=== PATIENT | male | born 1950 | race African-American/Black ===

== ENCOUNTER 2016-09-29 14:54 | Emergency (ER) | payer OTHER ==
[~2016-09-29] VITALS: Ht 185.4 cm; Wt 90.0 kg
[~2016-09-29 14:54] MED LIST: AMOX875 PO; TYLE3 PO; Z.0.NO CURRENT MEDS
[2016-09-29 14:56] VITALS: BP 185/120; PULSE 110; RESP 18; TEMP 98.9; O2SAT 97
--- NOTE | 2016-09-29 15:27 | PD ---
HPI Chief Complaint: Pain: Acute or Chronic Time Seen by Provider: 15:25 Travel History International Travel<30 days: No Contact w/Intl Traveler<30days: No Traveled to known affect area: No History of Present Illness HPI 65-year-old male presents to the emergency department for evaluation of left shoulder pain is been ongoing for 2 days without traumatic injury. Patient does report a history of chronic shoulder pain. He has reports surgery in 1979 for a torn rotator cuff. He denies any fevers or chills. He states the pain is relieved with rest, exacerbated by movement of the left arm. He denies any chest pain or shortness of breath. Patient does report a history of hypertension and he takes clonidine and gabapentin twice daily. He denies any other medical complaints at this time. [facility] Social History Alcohol Use: Yes Tobacco Use: Yes Substance Use: No Allergies-Medications (Allergen,Severity, Reaction): Coded Allergies: No Known Allergies (Verified , 05/28/10) Reported Meds & Prescriptions Reported Meds & Active Scripts Active Diclofenac Potassium 50 Mg Tab 50 Mg PO TID PRN Reported Clonidine (Clonidine HCl) 0.2 Mg Tab 0.2 Mg PO BID Prilosec (Omeprazole) 20 Mg Cap 20 Mg PO DAILY Neurontin (Gabapentin) 100 Mg Cap 100 Mg PO BID Review of Systems Except as stated in HPI: all other systems reviewed are Neg Physical Exam Narrative GENERAL: Well-developed well-nourished male patient, ambulatory. Afebrile. SKIN: Warm and dry. HEAD: Normocephalic. Atraumatic. EYES: No scleral icterus. No injection or drainage. NECK: Supple, trachea midline. No JVD or lymphadenopathy. CARDIOVASCULAR: Regular rhythm without murmurs, gallops, or rubs. Left radial pulse 2+. Patient is slightly tachycardic with heart rate 110 with likely due to pain. RESPIRATORY: Breath sounds equal bilaterally. No accessory muscle use. Lungs sounds are clear to auscultation. GASTROINTESTINAL: Abdomen soft, non-tender, nondistended. MUSCULOSKELETAL: No cyanosis, or edema. Tenderness to left upper/posterior shoulder is easily reproduced with palpation. The patient has limited flexion of the left shoulder due to pain. Patient has a normal grasp strength in the left hand. He has full sensation to distal left upper extremity. Data Data Last Documented VS Vital Signs Date Time Temp Pulse Resp B/P Pulse Ox O2 Delivery O2 Flow Rate FiO2 09/29/16 17:31 104 168/107 09/29/16 17:04 22 09/29/16 14:56 98.9 97 Room Air Orders Shoulder, Complete (>2vws) (09/29/16 ) Ketorolac Inj (Toradol Inj) (09/29/16 15:30) Clonidine (Catapres) (09/29/16 16:15) MDM Medical Decision Making Medical Screen Exam Complete: Yes Emergency Medical Condition: Yes Medical Record Reviewed: Yes Interpretation(s) Last Impressions Shoulder X-Ray 09/29/16 0000 Draft Impressions: Service Date/Time: Thursday, September 29, 2016 15:44 - CONCLUSION: No acute abnormality. Moderate degenerative changes of the left a.c. joint with downsloping osteophytes which likely cause symptoms of impingement. Kalyn Lujan MD Differential Diagnosis Shoulder sprain versus muscle strain versus fracture versus dislocation versus exacerbation of chronic pain Narrative Course 65-year-old male presents to the emergency department for left shoulder pain for 2 days without injury. He denies any other complaints. The pain is easily reproducible with palpation and movement of the left arm. X-ray of the left shoulder is ordered and pending. X-ray of the left shoulder shows no acute abnormality. Moderate degenerative changes of the left a.c. joint with downsloping osteophytes which likely cause symptoms of impingement. Patient will be discharged prescription for diclofenac for pain. He is instructed to follow-up with orthopedist. He'll be given the name and number for orthopedist on-call today. Patient verbalizes agreement and understanding. Diagnosis Primary Impression: Left shoulder pain Qualified Code: M25.512 - Chronic left shoulder pain Referrals: Orthopedist Patient Instructions: General Instructions, Shoulder Pain (ED) Additional Instructions: Take diclofenac as instructed as needed with food for pain. Follow-up with an orthopedist. Ice for 20 minutes 4-5 times daily. Return to the emergency department for any acute worsening of symptoms. Med/Other Pt SpecificInfo: Prescription(s) given Scripts Diclofenac Potassium 50 Mg Tab50 Mg PO TID PRN (PAIN SCALE 1 TO 10) #21 TAB Ref 0 Prov:Francie Starkey 09/29/16 Disposition: 01 DISCHARGE HOME Condition: Stable Francie Starkey Sep 29, 2016 15:27
[2016-09-29] MEDS ORDERED: KETOROLAC TROMETHAMINE 60 MG/2 ML (IM) VIAL IM ONE (15:30)
[2016-09-29 15:57] VITALS: BP 183/114; PULSE 118; RESP 24
[2016-09-29] MEDS ORDERED: NEUR100C PO (16:00)
[2016-09-29] MEDS ORDERED: PRIL20CA9 PO (16:01)
[2016-09-29] MEDS ORDERED: CLON0.2T PO (16:02)
[2016-09-29] MEDS ORDERED: cloNIDine HCL 0.2 MG TAB PO ONE (16:15)
--- NOTE | 2016-09-29 16:15 | RADRPT ---
EXAM DATE/TIME: 09/29/2016 15:44 [facility] COMPARISON: No previous studies available for comparison. INDICATIONS : Patient complains of left shoulder pain. No known injury. MEDICAL HISTORY : None. SURGICAL HISTORY : Rotator cuff repair. ENCOUNTER: Initial ACUITY: 2 days PAIN SCORE: 10/10 LOCATION: Left Shoulder FINDINGS: Multiple view examination of the left shoulder demonstrates no evidence of fracture or dislocation th e humerus appears normally aligned with respect to the adjacent glenoid. There are moderate degenerat jerilyn changes identified within the left a.c. joint with downsloping osteophytes which likely cause sym ptoms of impingement. CONCLUSION: No acute abnormality. Moderate degenerative changes of the left a.c. joint with downs loping osteophytes which likely cause symptoms of impingement. Kalyn Lujan MD on September 29, 2016 at 16:12 Board Certified Radiologist. This report was verified electronically.
[2016-09-29] MEDS ORDERED: DICL50TA PO (16:25)
[2016-09-29 17:04] VITALS: BP 180/111; PULSE 113; RESP 22
[2016-09-29 17:31] VITALS: BP 168/107; PULSE 104
== END 2016-09-29 17:41 | disposition home or self-care (01) ==
LOC: NEPB 14:54
DX: M25.512 Pain in left shoulder (principal); G89.29 Other chronic pain
CPT/HCPCS: 73030; 96372; 99283; J1885

== ENCOUNTER 2017-02-03 19:58 | Emergency (ER) | payer OTHER ==
[~2017-02-03] VITALS: Ht 185.4 cm; Wt 90.0 kg
[~2017-02-03 19:58] MED LIST changes: -AMOX875 PO; +CLON0.2T PO; +DICL50TA PO; +NEUR100C PO; +PRIL20CA9 PO; -TYLE3 PO; -Z.0.NO CURRENT MEDS
[2017-02-03 20:00] VITALS: BP 202/106; PULSE 71; RESP 18; TEMP 97.6; O2SAT 98
[2017-02-03] MEDS ORDERED: SODIUM CHLOR 0.9% 1000 ML INJ 1,000 ML IV SCH (20:33)
--- NOTE | 2017-02-03 20:38 | PD ---
HPI Chief Complaint: Abdominal Pain Time Seen by Provider: 20:32 Travel History International Travel<30 days: No Contact w/Intl Traveler<30days: No Traveled to known affect area: No History of Present Illness HPI 66-year-old male with history of gastroesophageal reflux disorder, presents to the ER today for 2 days history of epigastric abdominal discomfort, nausea, diarrhea, vomiting, and coughing with mucus expression. Pain is currently at an 8 out of 10. He has a granddaughter that had some similar symptoms as well. He denies any fevers, chest pains, shortness of breath, or any other symptoms. Modifying Factors: None Associated Signs & Symptoms: Nausea, abdominal discomfort, vomiting, diarrhea, coughing Risk Factors: Possible sick contact PFSH Past Medical History Diminished Hearing: No Hypertension: Yes Social History Alcohol Use: Yes (OCC) Tobacco Use: Yes ([id number]) Substance Use: No Allergies-Medications (Allergen,Severity, Reaction): Coded Allergies: No Known Allergies (Verified , 02/03/17) Reported Meds & Prescriptions Reported Meds & Active Scripts Active Reported Clonidine (Clonidine HCl) 0.2 Mg Tab 0.2 Mg PO BID Prilosec (Omeprazole) 20 Mg Cap 20 Mg PO DAILY Neurontin (Gabapentin) 100 Mg Cap 600 Mg PO BID Review of Systems Except as stated in HPI: all other systems reviewed are Neg Physical Exam Narrative GENERAL: Well-developed elderly -[place] male patient in moderate distress. Awake and oriented 3. SKIN: Focused skin assessment warm/dry. HEAD: Atraumatic. Normocephalic. EYES: Pupils equal and round. No scleral icterus. No injection or drainage. ENT: No nasal bleeding or discharge. Mucous membranes pink and moist. NECK: Trachea midline. No JVD. CARDIOVASCULAR: Regular rate and rhythm. No murmur appreciated. RESPIRATORY: No accessory muscle use. Clear to auscultation. Breath sounds equal bilaterally. GASTROINTESTINAL: Abdomen soft, mild epigastric and left lower quadrant tenderness without guarding or rebound, nondistended. Hepatic and splenic margins not palpable. MUSCULOSKELETAL: No obvious deformities. No clubbing. No cyanosis. No edema. NEUROLOGICAL: Awake and alert. No obvious cranial nerve deficits. Motor grossly within normal limits. Normal speech. PSYCHIATRIC: Appropriate mood and affect; insight and judgment normal. Data Data Last Documented VS Vital Signs Date Time Temp Pulse Resp B/P Pulse Ox O2 Delivery O2 Flow Rate FiO2 02/03/17 23:12 84 16 188/105 99 02/03/17 21:59 Room Air 02/03/17 20:00 97.6 Orders Complete Blood Count With Diff (02/03/17 20:33) Comprehensive Metabolic Panel (02/03/17 20:33) Lipase (02/03/17 20:33) Urinalysis - C+S If Indicated (02/03/17 20:33) Abdomen, Flat & Upright (02/03/17 ) Iv Access Insert/Monitor (02/03/17 20:33) Ecg Monitoring (02/03/17 20:33) Oximetry (02/03/17 20:33) Ondansetron Inj (Zofran Inj) (02/03/17 20:45) Pantoprazole Inj (Protonix Inj) (02/03/17 20:45) Sodium Chlor 0.9% 1000 Ml Inj (Ns 1000 M (02/03/17 20:33) Sodium Chloride 0.9% Flush (Ns Flush) (02/03/17 20:45) Electrocardiogram (02/03/17 20:33) Chest, Single Ap (02/03/17 20:33) Ct Abd/Pel W Iv Contrast(Rout) (02/03/17 22:04) Iohexol 350 Inj (Omnipaque 350 Inj) (02/03/17 23:25) Labs Laboratory Tests Test 02/03/17 02/03/17 20:43 21:47 White Blood Count 3.6 TH/MM3 Red Blood Count 5.58 MIL/MM3 Hemoglobin 13.9 GM/DL Hematocrit 43.1 % Mean Corpuscular Volume 77.2 FL Mean Corpuscular Hemoglobin 24.9 PG Mean Corpuscular Hemoglobin 32.2 % Concent Red Cell Distribution Width 15.3 % Platelet Count 186 TH/MM3 Mean Platelet Volume 8.0 FL Neutrophils (%) (Auto) 35.1 % Lymphocytes (%) (Auto) 44.0 % Monocytes (%) (Auto) 16.7 % Eosinophils (%) (Auto) 3.1 % Basophils (%) (Auto) 1.1 % Neutrophils # (Auto) 1.3 TH/MM3 Lymphocytes # (Auto) 1.6 TH/MM3 Monocytes # (Auto) 0.6 TH/MM3 Eosinophils # (Auto) 0.1 TH/MM3 Basophils # (Auto) 0.0 TH/MM3 CBC Comment DIFF FINAL Differential Comment Sodium Level 140 MEQ/L Potassium Level 4.0 MEQ/L Chloride Level 104 MEQ/L Carbon Dioxide Level 25.8 MEQ/L Anion Gap 10 MEQ/L Blood Urea Nitrogen 9 MG/DL Creatinine 1.16 MG/DL Estimat Glomerular Filtration 77 ML/MIN Rate Random Glucose 87 MG/DL Calcium Level 9.3 MG/DL Total Bilirubin 0.6 MG/DL Aspartate Amino Transf 20 U/L (AST/SGOT) Alanine Aminotransferase 18 U/L (ALT/SGPT) Alkaline Phosphatase 79 U/L Total Protein 8.3 GM/DL Albumin 3.7 GM/DL Lipase 400 U/L Urine Color YELLOW Urine Turbidity CLEAR Urine pH 7.0 Urine Specific Marine 1.012 Urine Protein NEG mg/dL Urine Glucose (UA) NEG mg/dL Urine Ketones NEG mg/dL Urine Occult Blood NEG Urine Nitrite NEG Urine Bilirubin NEG Urine Urobilinogen LESS THAN 2.0 MG/DL Urine Leukocyte Esterase NEG Urine RBC LESS THAN 1 /hpf Urine WBC 1 /hpf Urine Mucus FEW /lpf Microscopic Urinalysis Comment CULT NOT INDICATED MDM Medical Decision Making Medical Screen Exam Complete: Yes Emergency Medical Condition: Yes Medical Record Reviewed: Yes Interpretation(s) EKG shows NSR, no ST elevation or depression, and no arrhythmias. No significant T-wave inversions. Laboratory Tests Test 02/03/17 02/03/17 20:43 21:47 White Blood Count 3.6 TH/MM3 (4.0-11.0) Mean Corpuscular Volume 77.2 FL (80.0-100.0) Mean Corpuscular Hemoglobin 24.9 PG (27.0-34.0) Monocytes (%) (Auto) 16.7 % (0.0-8.0) Neutrophils # (Auto) 1.3 TH/MM3 (1.8-7.7) Estimat Glomerular Filtration 77 ML/MIN (>89) Rate Total Protein 8.3 GM/DL (6.4-8.2) Lipase 400 U/L (73-393) Urine Mucus FEW /lpf (OCC) Last 24 hours Impressions Chest X-Ray 02/03/172032 Signed Impressions: Service Date/Time: Friday, February 03, 2017 21:11 - CONCLUSION: No acute disease. Rohit Burns MD Abdomen X-Ray 02/03/17 0000 Signed Impressions: Service Date/Time: Friday, February 03, 2017 21:13 - CONCLUSION: No acute disease. Rohit Burns MD Differential Diagnosis Abdominal pain, nausea, vomiting, diarrhea, coughingviral syndrome versus gastritis versus pancreatitis versus metabolic issues versus dehydration versus obstruction versus pneumonia Narrative Course Lab work shows mild lipase elevations concerning for underlying pancreatitis. CAT scans and x-rays did not show any signs of other acute processes. At this point, patient had been given IV fluids, nausea medication, and Protonix. He had no further vomiting episodes in the ER. My plan would be to release the patient with worsening in symptoms as necessary. The plan has been discussed with the patient and he states understanding. Diagnosis Primary Impression: Pancreatitis Med/Other Pt SpecificInfo: Prescription(s) given Scripts Hydrocodone-Acetaminophen (Lortab)5-325 Mg Tab1 Tab PO Q6H PRN (PAIN) #15 TAB Ref 0 Prov:Marcie Gilmore MD 02/04/17 Ondansetron Odt (Zofran Odt)4 Mg Tab4 Mg SL Q6HR PRN (Nausea/Vomiting) #7 TAB Ref 0 Prov:Marcie Gilmore MD 02/04/17 Disposition: 01 DISCHARGE HOME Condition: Stable Marcie Gilmore MD February 03, 2017 20:38
[2017-02-03] MEDS ORDERED: ONDANSETRON HCL 4 MG/2 ML VIAL IVP ONE (20:45)
[2017-02-03] MEDS ORDERED: PANTOPRAZOLE SODIUM 40 MG VIAL IVP ONE (20:45)
[2017-02-03] MEDS ORDERED: SODIUM CHLORIDE 0.9% FLUSH 10 ML FLUSH IV FLUSH PRN (20:45)
[2017-02-03 21:02] LABS: AUTOMATED NEUTROPHIL # 1.3 TH/MM3 (1.8-7.7); BASOPHIL % 1.1 % (0.0-2.0); EOSINOPHIL # 0.1 TH/MM3 (0-0.4); EOSINOPHIL % 3.1 % (0.0-4.0); HEMATOCRIT 43.1 % (39.0-51.0); HEMO FLAGS DIFF FINAL; LYMPHOCYTE # 1.6 TH/MM3 (1.0-4.8); MEAN CELL VOLUME 77.2 FL (80.0-100.0); MEAN CORPUSCULAR HEMOGLOBIN 24.9 PG (27.0-34.0); MEAN CORPUSCULAR HGB CONC 32.2 % (32.0-36.0); MONO % 16.7 % (0.0-8.0); NEUT % 35.1 % (16.0-70.0); PLATELET COUNT 186 TH/MM3 (150-450); RED BLOOD COUNT 5.58 MIL/MM3 (4.50-5.90); RED CELL DISTRIBUTION WIDTH 15.3 % (11.6-17.2); WHITE BLOOD COUNT 3.6 TH/MM3 (4.0-11.0)
[2017-02-03 21:24] LABS: ANION GAP 10 MEQ/L (5-15); AST (GOT) 20 U/L (15-37); BICARBONATE 25.8 MEQ/L (21.0-32.0); BLOOD UREA NITROGEN 9 MG/DL (7-18); CHLORIDE 104 MEQ/L (98-107); GLOMERULAR FILTRATION RATE 77 ML/MIN (>89); SODIUM (NA) 140 MEQ/L (136-145)
[2017-02-03 21:27] LABS: ALKALINE PHOSPHATASE 79 U/L (45-117); ALT (GPT) 18 U/L (12-78); TOTAL BILIRUBIN ADULT 0.6 MG/DL (0.2-1.0)
--- NOTE | 2017-02-03 21:53 | RADRPT ---
EXAM DATE/TIME: 02/03/2017 21:11 [facility] COMPARISON: No previous studies available for comparison. INDICATIONS : Chest pain. MEDICAL HISTORY : None. SURGICAL HISTORY : None. ENCOUNTER: Initial ACUITY: 1 day PAIN SCORE: 4/10 LOCATION: chest FINDINGS: A single view of the chest demonstrates the lungs to be symmetrically aerated without evidence of mas s, infiltrate or effusion. The cardiomediastinal contours are unremarkable. Osseous structures are intact. There are surgical fasteners seen at the left proximal humerus. CONCLUSION: No acute disease. Rohit Burns MD on February 03, 2017 at 21:50 Board Certified Radiologist. This report was verified electronically.
--- NOTE | 2017-02-03 21:54 | RADRPT ---
EXAM DATE/TIME: 02/03/2017 21:13 [facility] COMPARISON: No previous studies available for comparison. INDICATIONS : Abdominal pain. MEDICAL HISTORY : None. SURGICAL HISTORY : Pelvis ORIF. ENCOUNTER: Initial ACUITY: 1 day PAIN SCORE: 9/10 LOCATION: Abdomen FINDINGS: Supine and upright views of the abdomen were performed. The abdominal bowel gas pattern is normal. No air fluid levels are seen. No abnormal masses, calcifications, or organomegaly is seen. The visu alized lower lungs are clear. No evidence of free intraperitoneal gas. There is a surgical screw thr ough the right upper pelvis and sacroiliac joint region. There is a plate along the superior aspect o f the pubic bones. There is degenerative change in the upper lumbar spine. CONCLUSION: No acute disease. Rohit Burns MD on February 03, 2017 at 21:51 Board Certified Radiologist. This report was verified electronically.
[2017-02-03 21:59] VITALS: RESP 18; O2SAT 97
[2017-02-03 22:26] LABS: BLOOD, URINE NEG (NEG); GLUCOSE,URINE NEG (NEG); KETONE, URINE NEG (NEG); MUCUS URINE FEW /lpf (OCC); NITRITE,URINE NEG (NEG); URINE COLOR YELLOW (YELLW/STRAW)
[2017-02-03 22:27] LABS: COMMENT (UR) CULT NOT INDICATED; CULTURE IF INDICATED CULT NOT INDICATED
[2017-02-03 23:12] VITALS: BP 188/105; PULSE 84; RESP 16; O2SAT 99
[2017-02-03] MEDS ORDERED: IOHEXOL 350 MG/ML 10 ML VIAL (for RAD DIAG) IV ONE (23:25)
--- NOTE | 2017-02-03 23:52 | RADRPT ---
EXAM DATE/TIME: 02/03/2017 23:22 [facility] COMPARISON: No previous studies available for comparison. INDICATIONS : Upper quadrant abdominal pain. IV CONTRAST: 90 cc Omnipaque 350 (iohexol) IV ORAL CONTRAST: No oral contrast ingested. RADIATION DOSE: 9.96 CTDIvol (mGy) MEDICAL HISTORY : Hypertension. SURGICAL HISTORY : Back surgery. Shoulder surgery. Pelvic surgery. ENCOUNTER: Initial ACUITY: 1 day PAIN SCALE: 5/10 LOCATION: Bilateral upper quadrant TECHNIQUE: Volumetric scanning of the abdomen and pelvis was performed. Using automated exposure control and ad justment of the mA and/or kV according to patient size, radiation dose was kept as low as reasonably achievable to obtain optimal diagnostic quality images. FINDINGS: Lung bases demonstrate dependent atelectasis. Mild fatty liver. 2.3 cm cyst right lobe. Spleen, adren als, kidneys and pancreas unremarkable. Calcified gallstone in the gallbladder. No biliary ductal dilatation. No free fluid. No bowel obstruction. There is previous screw fixation across the right sacroiliac surekha nt and plate and screw fixation across the pubic symphysis. CONCLUSION: 1. No acute findings within the abdomen or pelvis. 2. Fatty infiltration of the liver. Calcified gallstone without biliary ductal dilatation. No obstruc tive uropathy. 3. Please fixation across the right sacroiliac joint and pubic symphysis. Farhan Zheng MD on February 03, 2017 at 23:46 Board Certified Radiologist. This report was verified electronically.
[2017-02-04] MEDS ORDERED: ZOFR4TAB3 SL (00:02)
[2017-02-04] MEDS ORDERED: HYDR-3533 PO (00:02)
--- NOTE | 2017-02-04 16:43 | EKG ---
Date Performed: 02/03/2017 Time Performed: 21:56:18 PTAGE: 66 years EKG: Sinus rhythm WITH FIRST DEGREE AV BLOCK POSSIBLE LEFT ATRIAL ENLARGEMENT ABNORMAL ECG NO PREVIOUS TRACING DOCTOR: Anegles Brewster Interpretating Date/Time 02/04/2017 16:41:24
== END 2017-02-04 00:44 | disposition home or self-care (01) ==
LOC: NEPE 19:58
DX: K85.90 Acute pancreatitis without necrosis or infection, unspecified (principal); I10 Essential (primary) hypertension; F17.200 Nicotine dependence, unspecified, uncomplicated
CPT/HCPCS: 71010; 74020; 74177; 80053; 81001; 83690; 85025; 93005; 96361; 96374; 96375; 99284; C9113; J2405; J7030; Q9967